=== PATIENT | male | born 1960 | race African-American/Black ===

== ENCOUNTER 2025-04-03 21:10 | Emergency (ER) | payer OTHER ==
[2025-04-03] MEDS ORDERED: Ketorolac Tromethamine 30 MG (1 mL) VIAL ONE (21:27)
[2025-04-03 21:45] LABS: Glucose, Urine (Dipstick) Negative (Negative); Leukocyte Large (Negative); Protein, Urine (Dipstick) Negative (Neg-Trace); Specific Gravity, Urine 1.010 (1.005-1.030)
[2025-04-03 21:54] LABS: CAUTI Indications for Culture Urological Procedure; WBC/HPF Greater than 50 HPF (0-3)
[2025-04-03 22:03] LABS: ALT (SGPT) 10 U/L (Less than 45); AST (SGOT) 19 U/L (11-34); Albumin 3.7 g/dL (3.1-4.5); Alkaline Phosphatase 66 U/L (40-110); Anion Gap 18 mmol/L (10-20); BUN (Urea Nitrogen) 61 mg/dL (8.4-25.7); Bilirubin, Total 0.6 mg/dL (0.3-1.2); Calc. Creatinine Clearance 0 mL/min (70-130); Calcium 9.0 mg/dL (7.8-10.44); Carbon Dioxide 17 mmol/L (23-31); Chloride 101 mmol/L (98-107); Globulin 3.7 g/dL (2.4-3.5); Glucose 254 mg/dL (80-115); Magnesium 2.0 mg/dL (1.6-2.6); Potassium 4.1 mmol/L (3.5-5.1); Sodium 132 mmol/L (136-145)
[2025-04-03 22:04] LABS: Troponin I Less than 0.010 ng/mL (< 0.028)
[2025-04-03 22:13] LABS: #Basophils 0.1 thou/uL (0.0-0.2); #Eosinophils 0.1 thou/uL (0.0-0.7); #Lymphocytes 2.3 thou/uL (1.20-3.40); #Monocytes 1.1 thou/uL (0.11-0.59); #Neutrophils 9.2 thou/uL (1.40-6.50); %Basophils 0.7 % (0.0-1.0); %Eosinophils 1.0 % (0.0-10.0); %Lymphocytes 17.8 % (21.0-51.0); %Monocytes 8.7 % (0.0-10.0); %Neutrophils 71.9 % (42.0-75.0); Hematocrit 39.3 % (42.0-52.0); Hemoglobin 13.1 g/dL (14.0-18.0); Mean Corpuscular Hemoglobin 29.5 pg (27.0-31.0); Mean Corpuscular Volume 88.7 fl (78.0-98.0); Platelet Count 265 10x3/uL (130-400); Red Blood Cell (RBC) Count 4.43 mill/uL (4.70-6.10); White Blood Cell (WBC) Count 12.8 10x3/uL (4.8-10.8)
[2025-04-03 22:20] LABS: Bacteria/HPF 4+ HPF (None Seen)
[2025-04-03 22:22] LABS: Urine Culture Reflex Yes Yes
[2025-04-03] MEDS ORDERED: cefTRIAXone (ROCEPHIN) 2 GM VIAL ONE (22:53)
== END 2025-04-04 02:30 | disposition short-term general hospital (02) ==
LOC: NAV ERS 21:10
DX: A41.9 Sepsis, unspecified organism (principal); N39.0 Urinary tract infection, site not specified
CPT/HCPCS: 36415; 36416; 71045; 80053; 81001; 83605; 83735; 84484; 85025; 87040; 87086; 87149; 93005; 94760; 96361; 96365; 96375; J0696; J1885; J7030